=== PATIENT | female | born 2000 | race Two or more races ===

== ENCOUNTER 2023-03-01 00:45 | Emergency (ER) | payer OTHER ==
[~2023-03-01] VITALS: Ht 157.5 cm; Wt 50.8 kg
[2023-03-01] MEDS ORDERED: TEMAZEPAM15 MG (00:59)
[2023-03-01] MEDS ORDERED: DEPAKOTE ER500 MG (00:59)
[2023-03-01] MEDS ORDERED: RISPERDAL0.5 MG (00:59)
[2023-03-01] MEDS ORDERED: LORAZEPAM1 MG (01:00)
[2023-03-01 01:59] LABS: HEMATOCRIT 38.4 % (36.0-45.00); HEMOGLOBIN 13.1 g/dL (12.0-15.00); MEAN CELL VOLUME 88.3 fL (80.00-100.00); MEAN CORPUSCULAR HEMOGLOBIN 30.1 pg (27.00-32.0); PLATELET COUNT 272 K/uL (150-450); RED BLOOD COUNT 4.35 M/uL (4.00-6.00); RED CELL DISTRIBUTION WIDTH 12.8 % (11.5-14.5)
[2023-03-01 02:07] LABS: PH,URINE 6.5 (5.0-8.0); URINE APPEARANCE Clear; URINE BILIRRUBIN Negative (NEGATIVE); URINE BLOOD Negative; URINE COLOR Yellow; URINE GLUCOSE Negative (NEGATIVE); URINE LEUKOCYTE Trace; URINE NITRATE Negative; URINE PROTEIN Negative (NEGATIVE); URINE UROBILINOGEN 0.2 E.U./dl
[2023-03-01 02:08] LABS: URINE EPITHELIAL CELLS 14.2 uL (0.0-38.8); URINE RBC 2.8 uL (0.0-20.8); URINE WBC 6.9 uL (0.0-23.2)
[2023-03-01 02:13] LABS: ALBUMIN 3.9 gm/dL (3.4-5.0); BILIRUBIN TOTAL 0.34 mg/dL (0.3-1.2); CREATININE SERUM 0.8 mg/dL (0.55-1.02); GFR 87.39; GLOBULINA 3.6 G/DL (2.4-3.5); POTASSIUM 3.73 mEq/L (3.5-5.1); TOTAL PROTEIN 7.5 gm/dL (6.4-8.2)
[2023-03-01 02:34] LABS: COCAINE NEGATIVE (NEGATIVE); METHADONE NEGATIVE (NEGATIVE); OPIATES NEGATIVE (NEGATIVE); THC ( Cannabinoids) POSITIVE (NEGATIVE)
== END 2023-03-01 08:00 ==
LOC: ER 00:46
PROVIDERS: General Practice
DX: G40.89 Other seizures (principal); Z87.898 Personal history of other specified conditions